=== PATIENT | male | born 1940 | race Caucasian/White ===

== ENCOUNTER 2016-09-17 14:57 | Inpatient (IN) ==
[2016-09-17 16:23] LABS: HEMATOCRIT 24.1 % (42.0-52.0); HEMOGLOBIN 7.8 g/dL (14.0-18.0); MANUAL DIFF NEEDED? YES; MCH 25.3 PG (27-31); MCHC 32.4 g/dL (33-37); MCV 78.2 FL (81-99); RBC 3.08 XMIL (4.7-6.1)
[2016-09-17 16:26] LABS: PLT 22 X1000 (130-400)
[2016-09-17 16:40] LABS: LYMPHS 48 % (21-51); MONO 4 % (1-9); NRBC 1 % (0-0)
[2016-09-17 16:41] LABS: HYPOCHROM 1+
[2016-09-17 18:45] LABS: INR 1.06; PROTIME 11.2 Seconds (9.2-11.7); PTT 32.9 Seconds (22.0-36.0)
[2016-09-17 18:48] LABS: AGAP 15; ALBUMIN 4.2 g/dL (3.5-5.0); ALKALINE PHOSPHATASE 87 U/L (32-122); BUN 12 mg/dL (8-22); CALCIUM 8.8 mg/dL (8.8-10.2); CHLORIDE 100 mmol/L (98-107); COSMO 277; GOT 18 U/L (10-34); GPT 14 U/L (10-44); POTASSIUM 3.8 mmol/L (3.5-5.1); SODIUM 137 mmol/L (136-145); TCO2 22 mmol/L (25-35); TOTAL BILIRUBIN 1.01 mg/dL (0.20-1.00); TOTAL PROTEIN 7.2 g/dL (6.3-8.3)
--- NOTE | 2016-09-17 18:51 | Diag Imaging Result Doc PS360 ---
EXAM: CHEST-2 VIEWS HISTORY: admission TECHNIQUE: PA and lateral chest COMMENT: There are apparent fibrotic changes in the lung bases particularly the left lower lobe. This has not changed appreciably since 07/23/2013. IMPRESSION: Stable chest. Electronically signed by David Hardy 09/17/2016 6:49 PM
--- NOTE | 2016-09-17 19:57 | PROVIDER DOCUMENTATION ---
This chart was entered by Radha Acevedo Scribe, acting as scribe for Arian Nelson CRNP. HPI-General Adult - General Chief Complaint: Abnormal Lab[s] Stated Complaint: ABNORMAL LAB Time Seen by Provider: 09/17/16 18:09 Source: patient Allergies/Adverse Reactions: Patient Allergies Allergy/AdvReac Type Severity Reaction Status Date / Time levofloxacin [From Levaquin] Allergy RASH Verified 09/17/16 15:33 Home Medications: Home Medication List Medication Instructions Recorded Confirmed Last Taken Type LISINOpril [Prinivil] 10 mg PO DAILY 03/07/12 09/17/16 09/17/16 History PRAVAstatin [Pravachol] 40 mg PO DAILY 03/07/12 09/17/16 09/17/16 History Tamsulosin [Flomax] 0.4 mg PO DAILY 03/07/12 09/17/16 09/16/16 History Vit C/E/B6/FA/B12/Argin/Pep Xt 1 each PO DAILY 03/07/12 09/17/16 09/16/16 History [Cardiotek Tablet] - History of Present Illness -Gen Adult Nature of Presenting Problems: 76 yo M presents to the ER from Dr. Elena office with complaint of low H&H. States he has x2 weeks of SOB, dizziness when changing position fatigue, and weakness. Denies syncope. Has hx of ITP, is followed every [address] Bowen. Onset/Duration: reports: other (2 weeks) Associated Symptoms: reports: dizziness, fatigue, weakness Review of Systems - Adult - REVIEW OF SYSTEMS - ADULT Constitutional: denies: chills, fever Eyes: reports: no symptoms reported Ears, Nose, Mouth & Throat: reports: no symptoms reported Cardiovascular: denies: chest pain, palpitations Respiratory: reports: shortness of breath. denies: cough Gastrointestinal: denies: abdominal pain, diarrhea, nausea, vomiting Genitourinary: reports: no symptoms reported Musculoskeletal: reports: no symptoms reported Integumentary: reports: no symptoms reported Neurological: reports: no symptoms reported Psychiatric: reports: no symptoms reported Endocrine: reports: no symptoms reported Hematologic/Lymphatic: reports: no symptoms reported Allergic/Immunologic: reports: no symptoms reported All Other Systems: Reviewed and Negative Past History - Adult - PAST MEDICAL HISTORY-ADULT Review of Records: reports: Nursing Assessment Review, Medications Reviewed Cardiovascular: reports: HTN, hyperlipidemia Endocrine/Immune: reports: other (ITP) - PRIOR SURGERIES/PROCEDURES Surgical/Procedure History: reports: appendectomy, pacemaker - IMMUNIZATION STATUS Childhood Immunizations: See Nurse Assessment Flu Vaccine: See Nurse Assessment Physical Exam-General - PHYSICAL EXAM-ADULT Initial Vital Signs Reviewed: Yes - CONSTITUTIONAL General Appearance: alert, no apparent distress - EYES Eyes: PERRL/EOMI, pink conjunctivae - HEAD, EARS, NOSE, MOUTH & THROAT HENMT: normocephalic/atraumatic, normal ENT inspection, TMs normal, pharynx normal. negative: moist mucous membranes - NECK Neck: supple, normal inspection - RESPIRATORY Respiratory: no respiratory distress, no accessory muscle use - CARDIOVASCULAR Cardiovascular: normal peripheral pulses, regular rate, rhythm - GASTROINTESTINAL (ABDOMEN) Abdominal Exam: normal bowel sounds, non tender, soft - MUSCULOSKELETAL Back Exam: no CVA tenderness, no vertebral tenderness Extremity: normal gait, normal inspection - SKIN Integumentary: pallor. negative: normal color, normal turgor - NEUROLOGIC Neurologic: grossly normal, no motor/sensory deficits - PSYCHIATRIC Psych/Mental Status: normal mood/affect, normal thought content, normal thought process, oriented x 3 Progress - PLAN OF CARE/RESULTS Progress/Plan/Lab Results: Vital Signs - 8 hr 09/17/16 15:27 Temperature 98.3 F Pulse Rate 87 Respiratory Rate 18 Blood Pressure 177/131 O2 Sat by Pulse Oximetry 99 Laboratory Results - last 24 hr 09/17/16 15:30 WBC 15.81 H RBC 3.08 L Hgb 7.8 L Hct 24.1 L MCV 78.2 L MCH 25.3 L MCHC 32.4 L RDW Std Deviation 26.4 H Plt Count 22 L* MPV Not Reportable Neut % (Auto) Not Reportable Lymph % (Auto) Not Reportable [place] % (Auto) Not Reportable Eos % (Auto) [employer] Baso % (Auto) [employer] Neut # (Auto) Not Reportable Lymph # (Auto) Not Reportable [place] # (Auto) Not Reportable Eos # (Auto) [employer] Baso # (Auto) [employer] Segmented Neutrophils 37 L Lymphocytes 48 Monocytes 4 Metamyelocytes [employer] Nucleated RBCs 1 H Pathologist Review Hypochromia 1+ Poikilocytosis 2+ Anisocytosis 2+ Microcytosis 1+ Macrocytosis 2+ Unidentified Cells 11.00 Orders Category Date Time Status CBC WITH ELECTRONIC DIFF [HEME] Stat Lab 09/17/16 15:30 Completed Laboratory Tests 09/17/16 09/17/16 09/17/16 15:30 15:30 15:30 WBC 15.81 H RBC 3.08 L Hgb 7.8 L Hct 24.1 L MCV 78.2 L MCH 25.3 L MCHC 32.4 L RDW Std Deviation 26.4 H Plt Count 22 L* MPV Not Reportable Neut % (Auto) Not Reportable Lymph % (Auto) Not Reportable [place] % (Auto) Not Reportable Eos % (Auto) [employer] Baso % (Auto) [employer] Neut # (Auto) Not Reportable Lymph # (Auto) Not Reportable [place] # (Auto) Not Reportable Eos # (Auto) [employer] Baso # (Auto) [employer] Segmented Neutrophils 37 L Lymphocytes 48 Monocytes 4 Metamyelocytes [employer] Nucleated RBCs 1 H Pathologist Review Hypochromia 1+ Poikilocytosis 2+ Anisocytosis 2+ Microcytosis 1+ Macrocytosis 2+ Unidentified Cells 11.00 PT 11.2 INR 1.06 PTT (Actin FS) 32.9 Sodium 137 Potassium 3.8 Chloride 100 Carbon Dioxide 22 L Anion Gap 15 BUN 12 Creatinine 1.0 Estimated GFR/1.73 m2 > 60 BUN/Creatinine Ratio 12 Glucose 152 H Calculated Osmolality 277 Calcium 8.8 Total Bilirubin 1.01 H AST 18 ALT 14 Alkaline Phosphatase 87 Total Protein 7.2 Albumin 4.2 Globulin 3.0 Albumin/Globulin Ratio 1.4 Blood Type Antibody Screen 09/17/16 15:30 WBC RBC Hgb Hct MCV MCH MCHC RDW Std Deviation Plt Count MPV Neut % (Auto) Lymph % (Auto) [place] % (Auto) Eos % (Auto) Baso % (Auto) Neut # (Auto) Lymph # (Auto) [place] # (Auto) Eos # (Auto) Baso # (Auto) Segmented Neutrophils Lymphocytes Monocytes Metamyelocytes Nucleated RBCs Pathologist Review Hypochromia Poikilocytosis Anisocytosis Microcytosis Macrocytosis Unidentified Cells PT INR PTT (Actin FS) Sodium Potassium Chloride Carbon Dioxide Anion Gap BUN Creatinine Estimated GFR/1.73 m2 BUN/Creatinine Ratio Glucose Calculated Osmolality Calcium Total Bilirubin AST ALT Alkaline Phosphatase Total Protein Albumin Globulin Albumin/Globulin Ratio Blood Type O NEGATIVE Antibody Screen NEGATIVE Orders Category Date Time Status Cardiac Monitoring DIRECTED Care 09/17/16 18:27 Active Orthostatic Vital Signs NOW Care 09/17/16 18:30 Active Saline Loc NOW Care 09/17/16 18:27 Active Transfuse .Give-Transfuse Care 09/17/16 18:30 Active CHEST-2 VIEWS [RAD] Stat Exams 09/17/16 18:29 Completed CBC WITH ELECTRONIC DIFF [HEME] Stat Lab 09/17/16 15:30 Completed COMPREHENSIVE METABOLIC PANEL [CHEM] Stat Lab 09/17/16 15:30 Completed PRBC [LRPC (RED CELLS)] [BBK] Stat Lab 09/17/16 18:30 Uncollected PROTIME WITH INR [COAG] Stat Lab 09/17/16 15:30 Completed PTT [COAG] Stat Lab 09/17/16 15:30 Completed TYPE & SCREEN [BBK] Stat Lab 09/17/16 15:30 Completed UA NIMS W/REFLEX CULT [URINALYSIS] Stat Lab 09/17/16 18:29 Uncollected EKG [EKG] Stat Ther 09/17/16 18:27 Ordered Vital Signs - 24 hr 09/17/16 15:27 09/17/16 18:23 Temperature 98.3 F 98.0 F Pulse Rate 87 74 Respiratory Rate 18 18 Blood Pressure 177/131 135/65 O2 Sat by Pulse Oximetry 99 98 Reviewed labs, H&P with Dr. uTcker, agrees with plan of care, treatment, admission. Laboratory Tests 09/17/16 09/17/16 09/17/16 15:30 15:30 15:30 WBC 15.81 H RBC 3.08 L Hgb 7.8 L Hct 24.1 L MCV 78.2 L MCH 25.3 L MCHC 32.4 L RDW Std Deviation 26.4 H Plt Count 22 L* MPV Not Reportable Neut % (Auto) Not Reportable Lymph % (Auto) Not Reportable [place] % (Auto) Not Reportable Eos % (Auto) [employer] Baso % (Auto) [employer] Neut # (Auto) Not Reportable Lymph # (Auto) Not Reportable [place] # (Auto) Not Reportable Eos # (Auto) [employer] Baso # (Auto) [employer] Segmented Neutrophils 37 L Lymphocytes 48 Monocytes 4 Metamyelocytes [employer] Nucleated RBCs 1 H Pathologist Review Hypochromia 1+ Poikilocytosis 2+ Anisocytosis 2+ Microcytosis 1+ Macrocytosis 2+ Unidentified Cells 11.00 PT 11.2 INR 1.06 PTT (Actin FS) 32.9 Sodium 137 Potassium 3.8 Chloride 100 Carbon Dioxide 22 L Anion Gap 15 BUN 12 Creatinine 1.0 Estimated GFR/1.73 m2 > 60 BUN/Creatinine Ratio 12 Glucose 152 H Calculated Osmolality 277 Calcium 8.8 Total Bilirubin 1.01 H AST 18 ALT 14 Alkaline Phosphatase 87 Total Protein 7.2 Albumin 4.2 Globulin 3.0 Albumin/Globulin Ratio 1.4 Blood Type Antibody Screen Crossmatch 09/17/16 15:30 WBC RBC Hgb Hct MCV MCH MCHC RDW Std Deviation Plt Count MPV Neut % (Auto) Lymph % (Auto) [place] % (Auto) Eos % (Auto) Baso % (Auto) Neut # (Auto) Lymph # (Auto) [place] # (Auto) Eos # (Auto) Baso # (Auto) Segmented Neutrophils Lymphocytes Monocytes Metamyelocytes Nucleated RBCs Pathologist Review Hypochromia Poikilocytosis Anisocytosis Microcytosis Macrocytosis Unidentified Cells PT INR PTT (Actin FS) Sodium Potassium Chloride Carbon Dioxide Anion Gap BUN Creatinine Estimated GFR/1.73 m2 BUN/Creatinine Ratio Glucose Calculated Osmolality Calcium Total Bilirubin AST ALT Alkaline Phosphatase Total Protein Albumin Globulin Albumin/Globulin Ratio Blood Type O NEGATIVE Antibody Screen NEGATIVE Crossmatch See Detail Orders Category Date Time Status Cardiac Monitoring DIRECTED Care 09/17/16 18:27 Active Orthostatic Vital Signs NOW Care 09/17/16 18:30 Active Saline Loc NOW Care 09/17/16 18:27 Active Transfuse .Give-Transfuse Care 09/17/16 18:30 Active CHEST-2 VIEWS [RAD] Stat Exams 09/17/16 18:29 Completed CBC WITH ELECTRONIC DIFF [HEME] Stat Lab 09/17/16 15:30 Completed COMPREHENSIVE METABOLIC PANEL [CHEM] Stat Lab 09/17/16 15:30 Completed PRBC [LRPC (RED CELLS)] [BBK] Stat Lab 09/17/16 15:30 Results PROTIME WITH INR [COAG] Stat Lab 09/17/16 15:30 Completed PTT [COAG] Stat Lab 09/17/16 15:30 Completed TYPE & SCREEN [BBK] Stat Lab 09/17/16 15:30 Results UA NIMS W/REFLEX CULT [URINALYSIS] Stat Lab 09/17/16 18:29 Uncollected EKG [EKG] Stat Ther 09/17/16 18:27 Ordered Orders Category Date Time Status Cardiac Monitoring DIRECTED Care 09/17/16 18:27 Active Orthostatic Vital Signs NOW Care 09/17/16 18:30 Active Saline Loc NOW Care 09/17/16 18:27 Active Transfuse .Give-Transfuse Care 09/17/16 18:30 Active CHEST-2 VIEWS [RAD] Stat Exams 09/17/16 18:29 Completed CBC WITH ELECTRONIC DIFF [HEME] Stat Lab 09/17/16 15:30 Completed COMPREHENSIVE METABOLIC PANEL [CHEM] Stat Lab 09/17/16 15:30 Completed PRBC [LRPC (RED CELLS)] [BBK] Stat Lab 09/17/16 15:30 Results PROTIME WITH INR [COAG] Stat Lab 09/17/16 15:30 Completed PTT [COAG] Stat Lab 09/17/16 15:30 Completed TYPE & SCREEN [BBK] Stat Lab 09/17/16 15:30 Results UA NIMS W/REFLEX CULT [URINALYSIS] Stat Lab 09/17/16 18:29 Uncollected EKG [EKG] Stat Ther 09/17/16 18:27 Ordered Result Diagrams: 09/17/16 15:30 09/17/16 15:30 - XRAY 1 XRAY Study: Chest Impression: Normal (stable chest per Dr. Hardy) - CONSULTS/PCP/HOSPITALIST Notification #1 *Consult/PCP/Hospitalist*: Dr. Faria Time Discussed: 19:57 (bedside report given) Departure - Departure Date of Disposition Decision: 09/17/16 Time of Disposition Decision: 19:25 DIAGNOSIS: Anemia, Chronic ITP (idiopathic thrombocytopenia) Disposition: ADMITTED INPATIENT 09 Certified Medical Emergency: Emergent Condition: Stable Referrals and Follow-Ups: Shayna Nash MD [Primary Care Provider] - - Critical Care Note This patient required my direct & personal management of CC.: No Attestation - Physician/ CLARI Attestation Patient care was provided by Advanced Practice Provider:: Yes Advanced Practice Provider:: Arian Nelson Advanced Practice Provider documentation review:: The Mid-level provider documentation, treatment plan and medical decision making was reviewed by the physician who agrees with all treatment and medical decision making by the P. This chart was documented by the indicated scribe, (Radha Acevedo, Peggy) and accurately reflects the services I performed and decisions made by me, Arian Nelson CRNP, as attested by the provider's signature.
[2016-09-17] MEDS ORDERED: NS 1,000 ML ONE (20:02)
[2016-09-17] MEDS ORDERED: DECADRON PO ONE (21:16)
--- NOTE | 2016-09-17 22:02 | HISTORY AND PHYSICAL ---
PATIENT OF: 1. Shayna Nash MD HISTORY OF PRESENT ILLNESS: Mr. Michael Forbes is a 68-year-old male with past medical history of immune thrombocytopenic purpura, BPH, COPD, CAD, with 30% stenosis of the RCA graft. He also has 20-30% in the LAD. She also has had a pacemaker placed. Other past medical history includes seasonal allergic rhinitis, hyperlipidemia. Comes in today complaining of 2-3 week history of dizziness, shortness of breath with exertion. Initially, he thought that this was due to seasonal allergic rhinitis which he had been having a runny nose and sneezing spells. He has been taking loratadine for this. When his symptoms did not get any better, he decided to see Dr. Nash, so they ran some blood work and sent him to Dr. Bowen's office who unfortunately is out of town and they referred him straight to the ER to be evaluated. He also complaints of very occasional small amounts of hemoptysis for the last few days. No leg swelling. No chest pain, PND, orthopnea, palpitations or anginal type symptoms. No fever or chills, weight loss. No bleeding from any orifice otherwise. No nausea, vomiting, diarrhea, GI or genitourinary symptoms. No rash or arthralgias. Patient denies any change in his new medications. REVIEW OF SYSTEMS: Twelve systems done and reviewed and positive findings per HPI. ALLERGIES: Levaquin. HOME MEDICATION: Lisinopril 10 mg daily, pravastatin 40 mg daily, Flomax 0.4 mg daily, multivitamin once a day. SURGICAL HISTORY: Appendectomy, left hand and left shoulder surgery. Scrotal surgery for an abscess. FAMILY HISTORY: Myocardial infarction in dad and brother. No cancer or diabetes in first-degree relatives. SOCIAL HISTORY: Does not smoke, drink or use illicit drugs. Lives with his . ALLERGIES: Allergic to some antihistamine oddly enough, cannot remember the name and says it causes urticaria. LABORATORY WORK: White count 15,000. This in up form of 4000 three years ago, however. Hemoglobin and hematocrit is 7 and 24 with MCV of 78, platelet count of 22,000. He has no abnormal differential count. Glucose 152, is the only abnormality on the CMP. PT PTT normal. IMAGING: Chest film: Pulmonary fibrosis which is unchanged. PHYSICAL EXAMINATION: GENERAL: Thin elderly man who is pallid. He is alert, oriented to person, time with normal mood and affect. VITAL SIGNS: His blood pressure is 141/77, heart rate 75, respirations 18, temperature is 98.2 degrees, and 97% on room air. HEENT: Head is normocephalic, atraumatic. Eyes: ALLYSSA. EOMI. He is anicteric, not pale. ENT and oropharyngeal examination grossly negative for any exudates or oropharyngeal erythema. No central cyanosis. NECK: Supple. No JVD or carotid bruit. No thyromegaly. No lymphadenopathy. CHEST: Significantly decreased air entry in both lung lacey with no added sounds. CARDIOVASCULAR: First and second heart sounds are distant. Rhythm is regular. Cannot appreciate any murmurs or rubs. ABDOMEN: Full, soft, nontender. No masses or megaly. Bowel sounds are hypoactive. RECTAL: Deferred at this time. EXTREMITIES: Trace edema in both lower extremities. However, pulses distally in all extremities are of good volume and symmetrical. No clubbing or peripheral cyanosis. NEUROLOGICAL: No focal deficits. SKIN: Intact. No breakdown lesions noted. MUSCULOSKELETAL: Grossly normal. ASSESSMENT: 1. Thrombocytopenia probably secondary to idiopathic thrombocytopenia. We will start patient on p.o. Decadron 40 mg now and then daily for a total of 4 days. This is the recent recommendation that came out within the last 1 year as opposed to the old tapering regimen as this is most effective in the short term and increases platelet count by at least 2/3 without the attendant risks of steroid side effects. I will follow this daily. We will notify Dr. Bowen's team about this. 2. Anemia. Probably chronic inflammation. We will transfuse patient with 1-2 units and follow CBC likewise and identify Dr. Bowen's team. 3. Coronary artery disease. Stable. This is the reason why we need to transfuse him two units due to underlying prior coronary artery disease noted above story in 2013. 4. Chronic obstructive pulmonary disease. P.r.n. nebulizer treatments if deemed necessary. 5. Benign prostatic hypertrophy. Avoid ipratropium bromide, but continue Flomax. 6. Hypertension. Avoid on aggressive hypertensive treatment in this patient to avoid hypotension. cc: MD Shayna Buitrago MD Naveen T. Lobo, MD
[2016-09-17] MEDS ORDERED: ZOFRAN IV PRN (23:44)
[2016-09-17] MEDS ORDERED: TYLENOL PO PRN (23:44)
[2016-09-18] MEDS: NS 1,000 ML IV SCH ×4 (00:38→23:04)
[2016-09-18 05:19] LABS: URINE CULTURE NEEDED? NO; URINE MICRO REVIEW NEEDED? NO; URINE SOURCE CLEAN CATCH
[2016-09-18 05:21] LABS: BILIRUBIN URINE NEGATIVE (NEGATIVE); BLOOD URINE NEGATIVE (NEGATIVE); COLOR YELLOW; GLUCOSE URINE NEGATIVE (NEGATIVE); LEUKOCYTES URINE NEGATIVE (NEGATIVE); NITRITE URINE NEGATIVE (NEGATIVE); PH URINE 6.5; PROTEIN URINE NEGATIVE (NEGATIVE); TURBIDITY URINE CLEAR (CLEAR); UROBILINOGEN URINE NORMAL (NORMAL)
[2016-09-18 05:23] LABS: UR EPITHELIAL CELLS <10 /HPF (<10); URINE BACTERIA NEGATIVE /HPF; URINE RBC <10 /HPF (<10); URINE WBC <10 /HPF (<10)
[2016-09-18 05:57] LABS: HEMATOCRIT 29.6 % (42.0-52.0); HEMOGLOBIN 9.9 g/dL (14.0-18.0); LYMPH# 3.47 X1000 (1.2-3.4); MANUAL DIFF NEEDED? YES; MCH 26.6 PG (27-31); MCHC 33.4 g/dL (33-37); MCV 79.6 FL (81-99); MONO# 3.67 X1000 (0.11-0.59); MONO% 32.8 % (1.7-9.3); RBC 3.72 XMIL (4.7-6.1)
[2016-09-18 06:03] LABS: PLT 26 X1000 (130-400)
[2016-09-18 06:14] LABS: AGAP 14; ALBUMIN 4.1 g/dL (3.5-5.0); ALKALINE PHOSPHATASE 82 U/L (32-122); BUN 12 mg/dL (8-22); CALCIUM 8.8 mg/dL (8.8-10.2); CHLORIDE 104 mmol/L (98-107); COSMO 279; GOT 17 U/L (10-34); GPT 14 U/L (10-44); POTASSIUM 4.7 mmol/L (3.5-5.1); SODIUM 139 mmol/L (136-145); TCO2 21 mmol/L (25-35); TOTAL BILIRUBIN 1.47 mg/dL (0.20-1.00); TOTAL PROTEIN 6.7 g/dL (6.3-8.3)
[2016-09-18 06:18] LABS: BANDS 8 % (0-1); HYPOCHROM 1+; LYMPHS 24 % (21-51); MONO 10 % (1-9); NRBC 1 % (0-0)
--- NOTE | 2016-09-18 07:37 | EKG Report ---
Test Performed on : 09/17/2016 6:28:03 PM Test Reason : NO ORDER IN [employer] Blood Pressure : / mmHG Vent. Rate : 066 BPM Atrial Rate : 066 BPM P-R Int : 184 ms QRS Dur : 172 ms QT Int : 452 ms P-R-T Axes : 041 -83 062 degrees QTc Int : 473 ms Atrial-sensed ventricular-paced rhythm Abnormal ECG When compared with ECG of 23-JUL-2013 13:25, Vent. rate has decreased BY 20 BPM Unconfirmed Result
[2016-09-18] MEDS: PRAVACHOL PO SCH (10:16)
[2016-09-18] MEDS: PRINIVIL PO SCH (10:16)
[2016-09-18] MEDS: DECADRON PO SCH (10:16)
[2016-09-18] MEDS: FLOMAX PO SCH (10:16)
[2016-09-18] MEDS: PATIENT'S OWN MED PO SCH (10:17)
--- NOTE | 2016-09-18 17:39 | PROGRESS NOTE ---
DATE: 09/18/2016 SUBJECTIVE: The patient reports feeling fine. Denies any signs of bleeding. No hematuria or blood in the stools or vomiting blood. No fever or chills reported. OBJECTIVE: Vital Signs: Temperature 98.5 degrees, heart 93, respiratory rate 18, blood pressure 120/76, O2 saturation 100% on room air. General Examination: This is a 68-year-old male, lying in bed, in no acute distress. HEENT: Head is normocephalic, atraumatic. Anicteric sclerae and pale conjunctivae. Mucous membranes moist. Neck: Supple. No JVD noted. No carotid bruits. No lymphadenopathy. No thyromegaly. Cardiovascular: S1, S2 heard. No murmurs, gallops, or rubs. Regular rate and rhythm. Respiratory: Clear bilaterally to auscultation. No work of breathing or using accessory muscles. Abdomen: Soft, nontender to palpation. Bowel sounds present. No organomegaly. Extremities: No clubbing, cyanosis, or edema. Peripheral pulses present in both legs. Neurological: Patient alert oriented x3. Able to move 4 extremities. Cranial nerves 2-12 grossly normal. LABORATORY DATA: Remarkable for hemoglobin of 9.9 and platelet count 26,000. BMP unremarkable. ASSESSMENT AND PLAN: 1. Worsening idiopathic thrombocytopenia. Patient has been started on Decadron 40 mg and then daily for 4 days. The platelet count has increased a little bit, but considering this low platelet count and because of recent bleeding, we prefer to administer 1 unit of platelets. 2. Anemia of chronic disease. 2 units of blood have been transfused and the hemoglobin is 9.9. We will continue checking complete blood count. 3. Coronary artery disease, stable. No chest pain noted 4. Chronic obstructive pulmonary disease. Patient is not in exacerbation and receiving nebulizations as needed. 5. Benign prostatic hypertrophy. We will continue with Flomax. 6. Hypertension. The blood pressure is definitely better controlled we will continue with the same management. cc: Thor Birmingham MD
[2016-09-19] MEDS: NS 1,000 ML IV SCH (05:07)
[2016-09-19 08:33] VITALS: BP 156/92
[2016-09-19] MEDS: PRAVACHOL PO SCH (08:48)
[2016-09-19] MEDS: FLOMAX PO SCH (08:48)
[2016-09-19] MEDS: DECADRON PO SCH (08:49)
[2016-09-19] MEDS: PATIENT'S OWN MED PO SCH (08:49)
[2016-09-19] MEDS: PRINIVIL PO SCH (08:49)
[2016-09-19] MEDS ORDERED: PRILOSEC PO PRN (09:53)
[2016-09-19 10:27] LABS: BASO% 0.2 % (0.0-0.8); HEMATOCRIT 28.1 % (42.0-52.0); HEMOGLOBIN 9.3 g/dL (14.0-18.0); IMM GRAN# 1.07 X1000 (0.0-0.04); IMM GRAN% 11.9 % (0.0-0.5); LYMPH# 1.66 X1000 (1.2-3.4); LYMPH% 18.4 % (20.5-51.1); MANUAL DIFF NEEDED? YES; MCH 26.5 PG (27-31); MCHC 33.1 g/dL (33-37); MCV 80.1 FL (81-99); MONO# 0.84 X1000 (0.11-0.59); MONO% 9.3 % (1.7-9.3); NEUT% 60.2 % (42.2-75.2); PLT 70 X1000 (130-400); RBC 3.51 XMIL (4.7-6.1)
[2016-09-19 10:37] LABS: AGAP 15; BUN 18 mg/dL (8-22); CALCIUM 8.6 mg/dL (8.8-10.2); CHLORIDE 105 mmol/L (98-107); COSMO 286; POTASSIUM 4.2 mmol/L (3.5-5.1); SODIUM 141 mmol/L (136-145); TCO2 21 mmol/L (25-35)
[2016-09-19 10:41] LABS: BANDS 2 % (0-1); LYMPHS 14 % (21-51); MONO 10 % (1-9); NRBC 1 % (0-0)
[2016-09-19 10:42] LABS: HYPOCHROM 1+; POLYCHROM 1+
[2016-09-19] MEDS ORDERED: CLARITIN PO SCH (21:00)
--- NOTE | 2016-09-20 08:15 | DISCHARGE SUMMARY ---
ADMISSION DATE: 09/17/2016 DISCHARGE DATE: 09/19/2016 CONSULTATIONS: None. PERTINENT PROCEDURES: Chest x-ray showed a stable chest. EKG showed atrial fibrillation, ventricular paced rhythm. DISCHARGE DIAGNOSES: 1. Worsening idiopathic thrombocytopenia. The patient was started on Decadron. Platelet count increased. He was administered platelets. Stable. 2. Anemia of chronic disease, post 2 units of packed red blood cells. Hemoglobin and hematocrit are stable. Hemodynamically stable. 3. Coronary artery disease, stable. No chest pain noted. 4. Chronic obstructive pulmonary disease without exacerbation. 5. Benign prostatic hypertrophy. Continue Flomax. 6. Hypertension. Continue home medications. HOSPITAL COURSE: Mr. Forbes is a 76-year-old male with a past medical history of immune thrombocytopenic purpura, BPH, COPD, CAD, with 30% stenosis of the RCA graft, 20 -30% in the LAD. He has a pacemaker placed and hyperlipidemia. He came to the ED complaining of 2-3 week history of dizziness, shortness of breath with exertion. Initially thought it was due to his seasonal allergic rhinitis. He had been having runny nose and sneezing spells. He was also taking loratadine for this. When his symptoms were not getting any better, he went to see Dr. Nash. They ran some blood work, sent him to Dr. Bowen's office. He unfortunately was out of town, referred him to the ED to be evaluated. He also complained of very occasionally small amounts of hemoptysis for the last few days. Workup in the ED revealed a white count of 15 ,000, hemoglobin and hematocrit 7 and 24 with MCV of 78 with a platelet count of 22. His PT and PTT normal. Chest film was stable. He was admitted for thrombocytopenia secondary to his idiopathic thrombocytopenia. He was started on Decadron daily for 4 days. Initially his platelet count did come up. Then he was transfused with 1 unit of platelets. He was also given 2 units of PRBCs to bring up his hemoglobin and hematocrit. The patient has not had any signs of active bleeding. No hematuria. No blood in the stools or vomiting blood. Hemodynamically he has been stable. He is appropriate for discharge home today. Platelets are up to 70, hemoglobin and hematocrit 9 and 28. Temperature is 97.6, heart rate 65, respiratory rate 16, blood pressure 156/92, O2 saturation is 98% on room air. DISCHARGE DIET: Regular. DISCHARGE MEDICATIONS: As per Dr. Go. 1. Prinivil 10 mg p.o. daily. 2. Loratadine 10 mg p.o. at nighttime. 3. Medrol Dosepak 12 mg p.o. as directed. 4. Prilosec 40 mg p.o. daily. 5. Fibracol 40 mg p.o. daily. 6. Flomax 0.4 mg p.o. daily. 7. Cardiotek tablet p.o. at nighttime. FOLLOWUP: The patient is being discharged home with his . He will follow up with Dr. Bowen as well as his primary care physician, Dr. Shayna Nash, in 1-2 weeks. He will take his Medrol Dosepak as instructed. He can return to the ED for any worsening of symptoms. TIME: Thirty two minutes . Dictated by JOSE Santiago for Thor Birmingham MD cc: MD Shayna Mejia MD [facility]
--- NOTE | 2016-12-13 09:41 | ED EKG INTERP ---
This chart was entered by Mara Bnag Scribe, acting as scribe for Elver Tucker MD. EKG Interpretation - EKG Time of EKG reading by physician:: 18:28 EKG Read and Signed by:: Elver Tucker EKG Interpretation (*Must complete 3 of following elements*): Abnormal Rate: 66 Rhythm: atrial-sensed ventricular-paced rhythm Attestation - Physician/ CLARI Attestation Patient care was provided by Advanced Practice Provider:: Yes Advanced Practice Provider documentation review:: The Mid-level provider documentation, treatment plan and medical decision making was reviewed by the physician who agrees with all treatment and medical decision making by the MLP. The physician spent face to face time with patient:: No Advanced Practice Provider documentation review:: Supervising physician onsite and consulted in the evaluation and care of this patient. The physician did not have a face to face encounter with the patient. This chart was documented by the indicated scribe, (Mara Bagn Scribe) and accurately reflects the services I performed and decisions made by Garrett mark Christophe I, MD, as attested by the provider's signature.
== END 2016-09-19 13:45 | disposition home or self-care (01) ==
LOC: ED 14:57 → SUATTDRO 21:20 → 4N 21:20
PROVIDERS: ATTEND Internal Medicine